=== PATIENT | male | born 1960 | race Caucasian/White ===

== ENCOUNTER 2018-10-25 11:39 | Emergency (ER) | payer OTHER ==
--- NOTE | 2018-10-25 11:59 | PDOC ---
Attending Attestation - Resident Resident Name: Bianca Dillon - ED Attending Attestation I have performed the following: I have examined & evaluated the patient, The case was reviewed & discussed with the resident, I agree w/resident's findings & plan, Exceptions are as noted - HPI HPI: 10/25/18 11:53 Patient states that he was drinking heavily last night, awoke this morning with "dizziness", admitting that the room seemed to be spinning with change of positions, head movement and arising from a seated position specifically. Denies nausea or vomiting. Denies recent URI, earache, tinnitus, decreased hearing. However, he does state that in the last few weeks he has had some mild vertigo intermittently, primarily at night, when he moves his head. He admits drinking several beers every night, but does not usually drink vodka, as he did last night. History of cardiomyopathy diagnosed many years ago, uncertain etiology, seems to have "resolved" according to the patient. He does not recall his symptoms at that time or being told of a definite etiology. High blood pressure. Elevated cholesterol. Gout. His brother was recently diagnosed with left anterior descending coronary artery disease. Medications include Norvasc, pravastatin, colchicine, allopurinol, and baby aspirin. 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 Denies smoking but as noted above, drinks daily. 10/25/18 11:59 10/25/18 13:21 10/25/18 13:25 - Physicial Exam PE: 10/25/18 11:55 Vital signs normal. Patient is alert and oriented in no acute distress cooperative. PERRLA 4 mm, fundi benign with sharp disc margins and good central venous pulsations. ENT clear Neck supple without bruit mass or nodes Breath sounds full and clear CV regular without murmur rub or gallop Abdomen nondistended. Bowel sounds normal. Soft without mass tenderness organomegaly. No CVAT Neurological C2 to 12 intact. Strength full and symmetric. No focal sensory or motor deficits. Gait stable and unimpaired. Mild vertigo can be reproduced by rapid head movement and change of positions - Medical Decision Making 10/25/18 11:56 Assessment: Probable alcohol intoxication with subsequent aftereffects. Possible labyrinthitis, viral. No sign of head trauma or intracranial disease. Plan: Fluids and meclizine. Observe. Further evaluation depending on response to therapy. 10/25/18 14:[address] is negative EKG: LVH, but no acute ST-T wave changes. Troponin negative Remainder of labs without significant abnormalities. Most likely etiology for the patient's symptoms remains labyrinthitis. Additional dose of meclizine administered. Observe. 10/25/18 16:06 Patient's symptoms have resolved after the second dose of meclizine. He is ambulating well, without unsteadiness of gait, and his vertigo has resolved. To continue the meclizine, avoid alcohol in vigorous physical activity, follow-up with his doctor immediately upon return to [place] next week. In the meantime, return to ER if symptoms worsen or additional symptoms develop. Fully ambulatory and in no discomfort or other distress upon discharge with friend to follow-up as directed
[2018-10-25] MEDS ORDERED: SODIUM CHLORIDE 0.9% 500 ML INFUS.BAG IV ONE (12:02)
[2018-10-25] MEDS ORDERED: MECLIZINE HCL 25 MG TABLET (FP) PO ONE ×2 (12:02→14:08)
[2018-10-25] MEDS ORDERED: MECLIZINE HCL 25 MG TABLET (FP) ONE ×2 (12:02→14:15)
--- NOTE | 2018-10-25 12:02 | PDOC ---
History of Present Illness - General Chief Complaint: Lightheaded Stated Complaint: DIZZINESS WITH POSITION Time Seen by Provider: 10/25/18 11:53 - History of Present Illness Initial Comments: 58 year old male with history of HLD, HTN, gout, and cardiomyopathy (unspecified ) presenting with lightheadedness and dizziness since this morning. Patient states that he was drinking last night with his friends and family then woke this morning feeling a bit lethargic and very dizzy when he stood up. States that he felt weak on his feet and as if the room was shifting everytime he stood up or moved his head suddenly. Denies any LOC, falls, or focal weakness. He states that he has had a similar but less severe issue over the past few weeks where he had this spinning sensation when he layed his head back to go to sleep. Denies any fevers, chills, nausea, vomiting, diarrhea, chest pain, headache, or other symptoms. 10/25/18 13:54 Past History - Past Medical History Allergies/Adverse Reactions: Allergies Allergy/AdvReac Type Severity Reaction Status Date / Time No Known Allergies Allergy Unverified 10/25/18 11:41 Home Medications: Ambulatory Orders Allopurinol [Zyloprim -] 200 mg PO DAILY 10/25/18 Amlodipine Besylate [Norvasc -] 5 mg PO DAILY 10/25/18 Aspirin [ASA -] 1 tab PO DAILY 10/25/18 Colchicine 0.6 mg PO DAILY 10/25/18 Meclizine HCl [Antivert -] 25 mg PO TID PRN 7 Days #21 tablet 10/25/18 Pravastatin Sodium [Pravachol (Nf)] 40 mg PO HS 10/25/18 Cardiac Disorders: Yes (CARDIOMYOPATHY) COPD: No HTN: Yes Hypercholesterolemia: Yes Other medical history: GOUT - Suicide/Smoking/Psychosocial Hx Smoking History: Never smoked Hx Alcohol Use: Yes (BE[employer] VODKA) Drug/Substance Use Hx: No Review of Systems - Review of Systems Constitutional: No: Chills, Diaphoresis, Fever HEENTM: No: Blurred Vision, Tearing Respiratory: No: Cough, Orthopnea, Shortness of Breath Cardiac (ROS): No: Chest Pain, Edema, Irregular Heart Rate ABD/GI: No: Constipated, Diarrhea, Nausea, Vomiting : No: Burning, Dysuria, Discharge Musculoskeletal: No: Back Pain, Joint Pain, Muscle Pain, Muscle Weakness Integumentary: No: Bruising, Erythema, Flushing, Lesions Neurological: Yes: Weakness, Unsteady Gait, Dizziness. No: Headache, Numbness, Paresthesia, Tingling Psychiatric: No: Anxiety, Depression Endocrine: No: Flushing, Intolerance to Cold, Intolerance to Heat Hematologic/Lymphatic: No: Anemia, Blood Clots, Easy Bleeding *Physical Exam - Vital Signs Last Vital Signs Temp Pulse Resp BP Pulse Ox 98 F 62 20 142/92 97 10/25/18 11:41 10/25/18 11:41 10/25/18 11:41 10/25/18 11:41 10/25/18 11:41 - Physical Exam General Appearance: Yes: Nourished, Appropriately Dressed, Apparent Distress HEENT: positive: EOMI, PHONG, Normal ENT Inspection, Normal Voice Neck: positive: Trachea midline, Normal Thyroid, Supple. negative: Tender, Rigid Respiratory/Chest: positive: Lungs Clear, Normal Breath Sounds. negative: Chest Tender, Respiratory Distress, Accessory Muscle Use Cardiovascular: positive: Regular Rhythm, Regular Rate Gastrointestinal/Abdominal: positive: Normal Bowel Sounds, Flat, Soft. negative : Tender Lymphatic: negative: Adenopathy, Tenderness Musculoskeletal: positive: Normal Inspection. negative: Decreased Range of Motion Extremity: positive: Normal Capillary Refill, Normal Inspection, Normal Range of Motion. negative: Tender Integumentary: positive: Normal Color, Dry, Warm Neurologic: positive: inpatient coder II-XII NML intact, Fully Oriented, Alert, Normal Mood/ Affect, Normal Response, Motor Strength 5/5, Other (Had vertiginous symptoms on sudden movement of head from incline to flat. Negative jono-hallpike) Moderate Sedation - Procedure Monitoring Vital Signs: Procedure Monitoring Vital Signs Temperature 98 F 10/25/18 11:41 Pulse Rate 62 10/25/18 11:41 Respiratory Rate 20 10/25/18 11:41 Blood Pressure 142/92 10/25/18 11:41 O2 Sat by Pulse Oximetry (%) 97 10/25/18 11:41 ED Treatment Course - LABORATORY CBC & Chemistry Diagram: 10/25/18 13:12 10/25/18 13:10 Medical Decision Making - Medical Decision Making 58 year old presenting with vertiginous symptoms for the past two weeks that seem to have been acutely exacerbated by a heavy bout of drinking last night. Head CT negative, all labs WNL, Troponin negative, EKG demonstrating rate 64, WI interval 164, QRS 96, QTc 468, normal axis, LVH, and possible PACs. Patient' s symptosm improved with IV NS 1L and meclizine 50 PO x 2. Patient's ambulatory function and overall symptomatology drastically improved. Will DC with Neuro follow up and daily meclizine 25 PO BID as needed. 10/25/18 14:43 *DC/Admit/Observation/Transfer Diagnosis at time of Disposition: Vertigo - Discharge Dispostion Disposition: HOME Condition at time of disposition: Improved Decision to Admit order: No - Prescriptions Prescriptions: Meclizine HCl [Antivert -] 25 mg PO TID PRN 7 Days #21 tablet PRN Reason: Vertigo - Referrals Referrals: Osvaldo Russell MD [Staff Physician] - - Patient Instructions Printed Discharge Instructions: DI for Vertigo Additional Instructions: You likely have vertigo that was made worse by your drinking. Please do not drink any alcohol until you see the neurologist. Follow up with the neurologist on this sheet on Saturday. Please take the meclizine 2-3 times per day as needed for your dizziness. Take it easy for the next few days and stay hydrated. Please return to the ED if you have any new or worsening symptoms. - Post Discharge Activity
[2018-10-25 12:10] VITALS: TEMP 98; BMI 31.5
[2018-10-25 13:33] LABS: BASO % 0.9 % (0-2.0); EOS % 6.3 % (0-4.5); HEMATOCRIT 47.5 % (35.4-49); HEMOGLOBIN 15.4 GM/dl (11.7-16.9); LYMPH % 26.8 % (8-40); MCH 31.4 pg (25.7-33.7); MCHC 32.3 g/dl (32.0-35.9); MEAN CELL VOLUME 97.3 fl (80-96); MEAN PLT VOLUME 9.1 fl (7.5-11.1); MONO % 10.6 % (3.8-10.2); NEUT % 55.4 % (42.8-82.8); PLATELET COUNT 169 K/MM3 (134-434); RBC 4.89 M/mm3 (4.00-5.60); RDW 12.7 % (11.9-15.9); WHITE BLOOD COUNT 3.5 K/mm3 (4.0-10.8)
[2018-10-25 13:46] LABS: ALBUMIN 3.9 g/dl (3.5-5.0); ALK PHOS 64 U/L (32-92); ANION GAP 8 MMOL/L (8-16); BILIRUBIN,TOTAL 0.5 mg/dl (0.2-1.0); BLOOD UREA NITROGEN 15 mg/dl (7-18); CALCIUM 8.7 mg/dl (8.4-10.2); CHLORIDE 106 mmol/L (98-107); CO2 23 mmol/L (22-28); CREATININE 0.7 mg/dl (0.6-1.3); GLUCOSE,RANDOM 105 mg/dl (74-106); SGOT/AST 39 U/L (10-42); SGPT/ALT 42 U/L (10-40); SODIUM 137 mmol/L (136-145); TOT PROT 6.9 g/dl (6.4-8.3)
[2018-10-25 14:13] VITALS: BP 146/91; PULSE 65
--- NOTE | 2018-10-26 12:35 | EKG ---
Test Reason : Blood Pressure : / mmHG Vent. Rate : 064 BPM Atrial Rate : 064 BPM P-R Int : 164 ms QRS Dur : 096 ms QT Int : 454 ms P-R-T Axes : 022 025 050 degrees QTc Int : 468 ms SINUS RHYTHM WITH PREMATURE ATRIAL COMPLEXES MODERATE VOLTAGE CRITERIA FOR LVH, MAY BE NORMAL VARIANT BORDERLINE ECG NO PREVIOUS ECGS AVAILABLE Confirmed by MONA STRICKLAND MD ([id number]) on 10/26/2018 12:34:46 PM Referred By: JER MORALES Confirmed By:MONA STRICKLAND MD
== END 2018-10-25 15:50 | disposition home or self-care (01) ==
LOC: FER 11:39
PROC: 3E0337Z Introduction of Electrolytic and Water Balance Substance into Peripheral Vein, Percutaneous Approach (ICD-10-PCS; principal; 2018-10-25)
DX: R42 Dizziness and giddiness (principal); I10 Essential (primary) hypertension; E78.00 Pure hypercholesterolemia, unspecified; I42.9 Cardiomyopathy, unspecified
CPT/HCPCS: 36415; 70450-TC; 80053; 82550; 82553; 84484; 85025; 93005; 99283-25